=== PATIENT | female | born 1955 | race Caucasian/White ===

== ENCOUNTER → 2024-06-18 | Outpatient (CLI) | payer MEDICARE, SELFPAY ==
[2024-06-18 13:08] LABS: Erythrocyte Sedimentation Rate 14 mm/hr (0-30)
[2024-06-18 13:34] LABS: AST(SGOT) 14 U/L (15-37); Alanine Aminotransfer ALT/SGPT 50 U/L (13-56); Albumin, Serum 3.3 g/dL (3.2-5.0); Alkaline Phosphatase 85 U/L (45-117); Amylase 56 U/L (25-115); Anion Gap 4 (5-15); BUN 23 mg/dL (7-18); BUN/Creat Ratio 32.3 RATIO (10-20); CRP 9.09 mg/L (0.0-3.0); Chloride 107 mmol/L (98-107); Creatinine, Serum 0.71 mg/dL (0.55-1.02); EST Glomerular Filtration Rate 87 mL/min (>60); Est Glom Filt Rate - Afr Amer 105 mL/min (>60); Globulin 3.3 g/dL (2.2-4.2); Glucose 115 mg/dL (74-106); LDH 288 U/L (84-246); Lipase 30 U/L (13-75); Protein, Total 6.6 g/dL (6.4-8.2); Sodium Level 139 mmol/L (136-145)
[2024-06-23 14:08] LABS: Anti-Centromere B Ab <0.2 AI (0.0-0.9); Anti-Chromatin <0.2 AI (0.0-0.9); Anti-Jo <0.2 AI (0.0-0.9); Anti-Scleroderma-70 AB <0.2 AI (0.0-0.9); Anti-dsDNA Ab <1 IU/mL (0-9); Beef <0.10 kU/L (Class 0); Chocolate <0.10 kU/L (Class 0); Codfish <0.10 kU/L (Class 0); Corn <0.10 kU/L (Class 0); Egg, Whole <0.10 kU/L (Class 0); Milk (Cow) <0.10 kU/L (Class 0); Mussels <0.10 kU/L (Class 0); Peanut <0.10 kU/L (Class 0); Pork <0.10 kU/L (Class 0); RNP Ab <0.2 AI (0.0-0.9); SJOGREN'S Anti-SS-A test 4.2 AI (0.0-0.9); SJOGREN'S Anti-SS-B test < 0.2 AI (0.0-0.9); Salmon <0.10 kU/L (Class 0); Shrimp <0.10 kU/L (Class 0); Smith Ab <0.2 AI (0.0-0.9); Soybean <0.10 kU/L (Class 0); Tuna <0.10 kU/L (Class 0); Wheat <0.10 kU/L (Class 0)
[2024-06-26 07:07] LABS: ACCA 9 units (0-90); ALCA 33 units (0-60); AMCA 130 units (0-100); Angiotensin Convert Enzyme 34 U/L (14-82); Cytoplasmic Ab (C-ANCA) <1:20 titer (Neg:<1:20); Endomysial Antibody IgA Negative (Negative); Immunoglobulin A 73 mg/dL (87-352); Immunoglobulin E 14 IU/mL (6-495); Immunoglobulin G 536 mg/dL (586-1602); Immunoglobulin M 628 mg/dL (26-217); Perinuclear Ab (P-ANCA) <1:20 titer (Neg:<1:20); gASCA 25 units (0-50); t-Transglutaminase IgA <2 U/mL (0-3)
== END | disposition home or self-care (01) ==
PROVIDERS: PCP Family Medicine; Referring Provider Internal Medicine Gastroenterology; Visit Provider Internal Medicine Gastroenterology
DX: K57.92 Diverticulitis of intestine, part unspecified, without perforation or abscess without bleeding (principal)
CPT/HCPCS: 36415; 80053; 82150; 82164; 82784; 82785; 83516; 83615; 83690; 85652; 86003; 86005; 86036; 86037; 86140; 86225; 86235; 86255; 86671

== ENCOUNTER → 2024-08-06 | Outpatient (CLI) | payer MEDICARE, SELFPAY ==
--- NOTE | 2024-08-06 10:10 | MRI_ITS ---
EXAM: MR enterography abdomen/pelvis with and without contrast CLINICAL HISTORY: Diverticulitis. History of breast cancer. Hemolytic anemia. COMPARISON: None. TECHNIQUE: Multiplanar multisequence MRI of the abdomen and pelvis before and after IV gadolinium infusion. FINDINGS: Mild hepatosplenomegaly is noted. Craniocaudal dimension of the right hepatic lobe is 18.7 cm. Splenomegaly, craniocaudal dimension is 15.2 cm. Normal signal of the liver and spleen otherwise. Gallbladder is normal. Bile ducts are unremarkable. The pancreas is normal. Bilateral adrenals and kidneys are normal. Small hiatal hernia is present. Small bowel is unremarkable. Mild diffuse diverticulosis without diverticulitis. No GI tract mass is identified. No bowel stricture or active inflammation is identified. Small bowel is unremarkable. Appendix not discretely seen but no signs of appendicitis. No adenopathy or ascites. Uterus not visualized, correlate for hysterectomy. Urinary bladder is decompressed and not well evaluated. No pelvic masses identified. Incidentally there is a right lung masslike lesion measuring approximately 4.6 cm with small partially loculated right pleural effusion. No comparison imaging is available. Mild/moderate degenerative disc disease at L4-L5. No marrow lesions to suggest metastatic disease. MRI/Enterography Abd/Pel IMPRESSION: 1. Right lung abnormality, possibly a mass measuring 4.6 cm. Small partially loculated right pleural effusion. Dedicated CT chest with IV contrast is recommended. Malignancy is possible. 2. Mild hepatosplenomegaly. No hepatic metastatic disease. 3. Diffuse colonic diverticulosis without diverticulitis. GI tract is otherwi se unremarkable with no tumor, active inflammation, or obstruction identified. Reading Location: [facility]
[2024-08-06 10:41] VITALS: BP 124/77; PULSE 95; RESP 16; O2SAT 100; BMI 31.8
[2024-08-06] MEDS: Glucagon 1 MG/ML Syringe IV (12:55)
[2024-08-06 13:20] VITALS: BP 134/84; PULSE 109; RESP 16; O2SAT 95
== END | disposition home or self-care (01) ==
LOC: MRI 10:02
PROVIDERS: PCP Family Medicine; Referring Provider Internal Medicine Gastroenterology; Visit Provider Internal Medicine Gastroenterology
DX: K57.92 Diverticulitis of intestine, part unspecified, without perforation or abscess without bleeding (principal)
CPT/HCPCS: 74183; 96374; A9575; A4216; J1610

== ENCOUNTER → 2024-11-03 | Outpatient (CLI) | payer MEDICARE, SELFPAY ==
--- NOTE | 2024-11-03 12:18 | CT_ITS ---
PROCEDURE: ABDOMEN/PELVIS WITH CONTRAST (procedure code [id number]), 11/03/2024 REASON FOR EXAM: DIVERTICULITIS AND ABD PAIN TECHNIQUE: CT abdomen and pelvis was performed with IV contrast. Multiplanar reformats were generated. IV CONTRAST: Isovue-300 VOLUME: 78mL Oral contrast: Administered however type and dose information was not provided. RADIATION DOSE SUMMARY: CTDlvol: 16.62+ 20.05 mGy DLP: 989.96 mGycm One or more dose reduction techniques were used (e.g., Automated exposure control, adjustment of the mA and/or kV according to patient size, use of iterative reconstruction technique). COMPARISON: 08/06/2014 FINDINGS: Lung bases: Small/moderate RIGHT pleural effusion with pleural thickening and enhancement. Vaguely nodular subpleural RIGHT lower lobe masslike opacity is partially imaged, at least 4.6 x 2.3 cm.. Trace LEFT pleural effusion. LEFT lower lobe granuloma. Cardiomegaly. Small hiatal hernia. Suspect trace bibasilar interlobular septal thickening. Liver: Borderline steatosis.. Hepatomegaly. Spleen: Borderline mild splenomegaly, 13.1 cm, previously 15.5 cm. Gallbladder: Unremarkable. Pancreas: Unremarkable. Adrenals: Unremarkable. Kidneys: Malrotated RIGHT kidney. Tiny hypodensity in the RIGHT too small to characterize, likely a cyst.. Bowel: Diverticulosis. Trace stranding along the junction of the descending colon and the sigmoid with mild wall thickening in the region. Appendix not identified. No definite inflammation in the region. Lymph nodes: Unremarkable. Vasculature: Unremarkable. Peritoneum: Trace fluid adjacent to the above area of inflammation. No abscess.. Bladder: Underdistended and suboptimally evaluated, grossly unremarkable. Reproductive Organs: Hysterectomy. Body Wall: Tiny fat containing umbilical hernia.. Bones: Mild spondylosis. Trace lumbar levoscoliosis.. CT/Abdomen/Pelvis WITH Contrast IMPRESSION: 1. Findings are compatible with trace to mild acute diverticulitis along the ju nction of the descending colon in the sigmoid. No abscess. 2. Given sigmoid wall thickening in the region of the above, recommend clinical follow-up to ensure resolution and no underlying colonic lesion. 3. Partially imaged [id number] RIGHT pleural effusion with marked pleura l thickening/enhancement and possible RIGHT lower lobe mass. Findings may reflect neoplasm or pneumonia/empyema. Correlate with patient. Similar findings were also present 08/06/2024. CT chest with IV contrast again recommended. 4. Cardiomegaly with suspected trace bibasilar interstitial edema. 5. Hepatosplenomegaly and borderline hepatic steatosis. Correlate for clinical and laboratory evidence of chronic liver disease. Splenomegaly has improved from 08/06/2024. 6. Appendix not identified. No definite inflammation in the region. 7. Additional description as above. Findings were discussed by telephone with Dr. Mccabe At 2:29 pm MST on 5 by Munir Garzon. Reading Location: [id number]
== END | disposition home or self-care (01) ==
LOC: CT 12:15
PROVIDERS: PCP Family Medicine; Referring Provider Internal Medicine Gastroenterology; Visit Provider Internal Medicine Gastroenterology
DX: K57.92 Diverticulitis of intestine, part unspecified, without perforation or abscess without bleeding (principal); R10.9 Unspecified abdominal pain
CPT/HCPCS: 74177; Q9967; A4216